=== PATIENT | male | born 1950 | race Caucasian/White ===

== ENCOUNTER 2017-06-08 12:16 | Emergency (ER) | payer MEDICARE, OTHER ==
[2017-06-08] MEDS ORDERED: MAGNESIUM SULFATE 2 GRAM 50 ML IV STA (13:31)
--- NOTE | 2017-06-08 13:33 | ED Physician Documentation ---
PD HPI MHE - Stated complaint Stated Complaint: SI - Chief complaint Chief Complaint: MHE - History obtained from History obtained from: Patient, Family (sister) - History of Present Illness Primary symptom: Other (This is a 66-year-old gentleman with long-standing alcoholism, currently drunk. He presents accompanied by his sister for vague suicidal ideation. He does have guns in the house. He wants to quit drinking. Says he is not actively suicidal.) Review of Systems Ten Systems: 10 systems reviewed and negative Constitutional: reports: Reviewed and negative Throat: reports: Reviewed and negative Cardiac: reports: Chest pain / pressure Respiratory: reports: Reviewed and negative PD PAST MEDICAL HISTORY - Past Medical History Past Medical History: Yes Cardiovascular: None Respiratory: None Neuro: Tremors Endocrine/Autoimmune: None GI: None : None Musculoskeletal: None Derm: None Other Past Medical History: Alcholism - Past Surgical History Past Surgical History: Yes General: Appendectomy - Present Medications Home Medications: Ambulatory Orders Medication Instructions Recorded Confirmed No Known Home Medications [No 06/08/17 06/08/17 Known Home Medications] - Allergies Allergies/Adverse Reactions: Allergies Allergy/AdvReac Type Severity Reaction Status Date / Time No Known Drug Allergies Allergy Verified 06/08/17 12:25 - Social History Does the pt smoke?: No Smoking Status: Former smoker Does the pt drink ETOH?: Yes ETOH Use: Liquor Does the pt have substance abuse?: No - Family History Family history: reports: Non contributory PD ED PE NORMAL - Vitals Vital signs reviewed: Yes - General General: Alert and oriented X 3, Other (Slurred speech, with horizontal nystagmus, anicteric.) - HEENT HEENT: PERRL, EOMI - Neck Neck: Supple, no meningeal sign, No bony TTP - Cardiac Cardiac: Other (Tachycardic, regular no murmur) - Respiratory Respiratory: No respiratory distress, Clear bilaterally - Abdomen Abdomen: Normal bowel sounds, Soft, Non tender - Derm Derm: No rash - Extremities Extremities: No deformity, No edema, No calf tenderness / cord - Neuro Neuro: Alert and oriented X 3, Normal speech - Psych Psych: Normal mood, Normal affect Results - Vitals Vitals: Vital Signs - 24 hr 06/08/17 06/08/17 06/08/17 18:02 20:02 21:04 Temperature 36.8 C Heart Rate 115 H 114 H 140 H Respiratory 17 23 16 Rate Blood Pressure 143/91 H 135/95 H 122/89 H O2 Saturation 94 93 93 06/09/17 06/09/17 06/09/17 03:48 05:44 05:49 Temperature Heart Rate 81 119 H 87 Respiratory 16 19 16 Rate Blood Pressure 131/78 H 136/78 H 121/77 O2 Saturation 92 94 92 06/09/17 07:34 Temperature Heart Rate 104 H Respiratory 17 Rate Blood Pressure 144/83 H O2 Saturation 95 Oxygen O2 Source Room air - Labs Labs: Laboratory Tests 06/08/17 06/08/17 06/08/17 14:17 14:17 15:34 WBC 7.7 RBC 5.01 Hgb 13.5 L Hct 40.6 L MCV 81.1 MCH 27.0 MCHC 33.3 RDW 21.9 H Plt Count 188 MPV 7.9 Neut # 4.2 Lymph # 2.8 [place] # 0.7 Eos # 0.0 Baso # 0.1 Absolute Nucleated RBC 0.00 Nucleated RBCs 0.0 Manual Slide Review Indicated WBC Morphology NORMAL APPEARANCE Platelet Estimate NORMAL (130-450,000) Platelet Morphology NORMAL APPEARANCE RBC Morph Micro Appear 2+ ANISOCYTOSIS Sodium 141 Potassium 3.6 Chloride 101 Carbon Dioxide 27 Anion Gap 13.0 BUN 7 Creatinine 0.7 Estimated GFR (MDRD) 113 Glucose 107 H Calcium 8.7 Total Bilirubin 0.6 AST 127 H ALT 70 H Alkaline Phosphatase 67 Total Protein 8.2 Albumin 4.2 Globulin 4.0 Albumin/Globulin Ratio 1.1 Lipase 27 Urine Opiates Screen NEGATIVE Ur Oxycodone Screen NEGATIVE Urine Methadone Screen NEGATIVE Ur Propoxyphene Screen NEGATIVE Ur Barbiturates Screen NEGATIVE Ur Tricyclics Screen NEGATIVE Ur Phencyclidine Scrn NEGATIVE Ur Amphetamine Screen NEGATIVE U Methamphetamines Scrn NEGATIVE U Benzodiazepines Scrn NEGATIVE Urine Cocaine Screen NEGATIVE U Cannabinoids Screen POSITIVE H Ethyl Alcohol 378.8 06/09/17 06:03 WBC RBC Hgb Hct MCV MCH MCHC RDW Plt Count MPV Neut # Lymph # [place] # Eos # Baso # Absolute Nucleated RBC Nucleated RBCs Manual Slide Review WBC Morphology Platelet Estimate Platelet Morphology RBC Morph Micro Appear Sodium Potassium Chloride Carbon Dioxide Anion Gap BUN Creatinine Estimated GFR (MDRD) Glucose Calcium Total Bilirubin AST ALT Alkaline Phosphatase Total Protein Albumin Globulin Albumin/Globulin Ratio Lipase Urine Opiates Screen Ur Oxycodone Screen Urine Methadone Screen Ur Propoxyphene Screen Ur Barbiturates Screen Ur Tricyclics Screen Ur Phencyclidine Scrn Ur Amphetamine Screen U Methamphetamines Scrn U Benzodiazepines Scrn Urine Cocaine Screen U Cannabinoids Screen Ethyl Alcohol < 5.0 PD MEDICAL DECISION MAKING - ED course ED course: This is a 66-year-old gentleman who presents with a request for alcohol detoxification. He is drunk currently. He has made some threats of suicidal ideation, but he denies active suicidal ideation. Unfortunately there is no social work case manager available today, he is too drunk for thorough evaluation anyway. He was willing to spend the night in the emergency department to speak with the social workers in the morning. Overnight he did have some alcohol withdrawal with tachycardia which was treated with IV fluids and Ativan with good relief. Sign out to Dr Moreno pending soc wk eval in AM. Departure - Departure Disposition: 01 Home, Self Care Clinical Impression: Alcohol withdrawal syndrome Qualifiers: Complication of substance-induced condition: uncomplicated Qualified Code(s): F10.230 - Alcohol dependence with withdrawal, uncomplicated Condition: Good Instructions: ED Withdrawal Alcohol, ED Alcohol Intoxication, ED Alcohol Abuse Comments: Please seek help for your alcoholism as discussed with the social work case manager. Discharge Date/Time: 06/09/17 09:21
[2017-06-08] MEDS ORDERED: MAGNESIUM SULFATE 2 GRAM 50 ML IV ONE (13:56)
[2017-06-08] MEDS ORDERED: THIAMINE 100 MG/1 ML 2 ML MDV ONE (13:57)
[2017-06-08] MEDS: THIAMINE INJ 100 MG, FOLIC ACID INJ 1 MG in SODIUM CHLORIDE 0.9% 100ML 100 ML IV STA ×2 (14:19→14:38)
[2017-06-08] MEDS: MULTIVITAMIN 10 ML in SODIUM CHLORIDE 0.9% 1,000 ML IV STA ×2 (14:19→14:38)
[2017-06-08] MEDS ORDERED: NICOTINE 14 MG PATCH TOP STA (14:55)
[2017-06-08 14:57] LABS: BASOPHILS # (AUTO) 0.1 10^3/uL (0.0-0.1); BASOPHILS % (AUTO) 0.7 %; EOSINOPHILS % (AUTO) 0.2 %; HCT - HEMATOCRIT 40.6 % (42.0-52.0); HGB - HEMOGLOBIN 13.5 g/dL (14.0-18.0); LYMPHOCYTES # (AUTO) 2.8 10^3/uL (1.5-3.5); LYMPHOCYTES % (AUTO) 36.1 %; MEAN CORPUSCULAR HGB CONC 33.3 g/dL (32.0-36.0); MEAN CORPUSCULAR VOLUME 81.1 fL (80.0-94.0); MEAN PLATELET VOLUME 7.9 fL (7.4-11.4); MONOCYTES # (AUTO) 0.7 10^3/uL (0.0-1.0); MONOCYTES % (AUTO) 8.5 %; NEUTROPHILS # (AUTO) 4.2 10^3/uL (1.5-6.6); NEUTROPHILS % (AUTO) 54.5 %; RED BLOOD COUNT 5.01 10^6/uL (4.70-6.10); RED CELL DISTRIBUTION WIDTH 21.9 % (12.0-15.0); UNCORRECTED WHITE BLOOD COUNT 7.7 x10^3/uL; WHITE BLOOD COUNT 7.7 x10^3/uL (4.8-10.8)
[2017-06-08] MEDS ORDERED: NICOTINE 14 MG PATCH TOP ONE (15:01)
[2017-06-08 15:14] LABS: ALBUMIN/GLOBULIN RATIO 1.1 (1.0-2.2); BILIRUBIN,TOTAL 0.6 mg/dL (0.2-1.0); CALCIUM 8.7 mg/dL (8.5-10.3); CREATININE 0.7 mg/dL (0.6-1.2); POTASSIUM 3.6 mmol/L (3.5-5.0); TOTAL PROTEIN 8.2 g/dL (6.7-8.2)
[2017-06-08 15:15] LABS: PLATELET ESTIMATE, MANUAL NORMAL (130-450,000) (NORMAL); PLATELET MORPHOLOGY NORMAL APPEARANCE (NORMAL); WBC MORPHOLOGY (MULTIPLE) NORMAL APPEARANCE (NORMAL)
[2017-06-08] MEDS ORDERED: LORazepam 2 MG/ML SYRINGE IVP STA ×2 (19:43→21:10)
[2017-06-08] MEDS ORDERED: LORazepam 2 MG/ML SYRINGE ONE ×2 (20:04→21:04)
[2017-06-08] MEDS ORDERED: SODIUM CHLORIDE FLUSH 0.9% 10 ML SYRINGE IVP ONE (20:09)
[2017-06-08] MEDS ORDERED: SODIUM CHLORIDE 0.9% 1,000 ML IV ONE (21:33)
[2017-06-09] MEDS ORDERED: LORazepam 2 MG/ML SYRINGE IVP STA ×2 (05:33→08:53)
[2017-06-09] MEDS ORDERED: LORazepam 2 MG/ML SYRINGE ONE ×2 (05:40→08:58)
[2017-06-09 07:35] VITALS: BP 144/83
== END 2017-06-09 09:21 | disposition home or self-care (01) ==
LOC: ED 12:16
DX: F10.230 Alcohol dependence with withdrawal, uncomplicated (principal); Z87.891 Personal history of nicotine dependence
CPT/HCPCS: 36415; 80053; 80306; 83690; 85025; 96365; 96368; 96375; 99284; 99285; A9270; G0480; J2060; J3411; 80320

== ENCOUNTER 2017-08-01 17:26 | Emergency (ER) | payer MEDICARE, OTHER ==
[2017-08-01 17:39] VITALS: BP 162/95
[2017-08-01] MEDS ORDERED: MAGNESIUM SULFATE 2 GRAM 2 GM/50 ML BAG IV ONE (17:43)
[2017-08-01] MEDS ORDERED: THIAMINE INJ 100 MG in SODIUM CHLORIDE 0.9% 50 ML IV STA (17:43)
[2017-08-01] MEDS ORDERED: SODIUM CHLORIDE 0.9% 1,000 ML IV ONE (17:43)
--- NOTE | 2017-08-01 17:46 | ED Physician Documentation ---
History of Present Illness - Stated complaint Stated Complaint: MHE/ETOH - Chief complaint Chief Complaint: MHE - History obtained from History obtained from: Patient, Friend - History of Present Illness Timing: Today Pain level max: 0 Pain level now: 0 Improved by: nothing Worsened by: nothing - Additonal information Additional information: Patient states that he is an alcoholic and has started drinking again about a week ago. States he is not homicidal or suicidal. States no hallucinations. States felt dizzy today. Doesn't want to go to rehab. Has not had seizures or hallucinations before. Denies any other complaints at this time. Review of Systems Ten Systems: 10 systems reviewed and negative Constitutional: denies: Fever, Chills Eyes: denies: Decreased vision Ears: denies: Ear pain Nose: denies: Rhinorrhea / runny nose, Congestion Throat: denies: Sore throat Cardiac: denies: Chest pain / pressure Respiratory: denies: Cough, Hemoptysis, Wheezing GI: denies: Abdominal Pain, Nausea, Vomiting, Diarrhea : denies: Dysuria Skin: denies: Rash Musculoskeletal: denies: Neck pain, Back pain Neurologic: denies: Focal weakness, Numbness, Headache PD PAST MEDICAL HISTORY - Past Medical History Past Medical History: Yes Cardiovascular: None Respiratory: None Neuro: Tremors Endocrine/Autoimmune: None GI: None : None Musculoskeletal: None Derm: None - Past Surgical History Past Surgical History: Yes General: Appendectomy - Present Medications Home Medications: Ambulatory Orders Medication Instructions Recorded Confirmed No Known Home Medications [No 06/08/17 08/01/17 Known Home Medications] - Allergies Allergies/Adverse Reactions: Allergies Allergy/AdvReac Type Severity Reaction Status Date / Time No Known Drug Allergies Allergy Verified 08/01/17 19:08 - Social History Does the pt smoke?: No Smoking Status: Never smoker Does the pt drink ETOH?: Yes Does the pt have substance abuse?: No PD ED PE NORMAL - Vitals Vital signs reviewed: Yes - General General: Alert and oriented X 3, No acute distress, Well developed/nourished, Other (intoxicated) - HEENT HEENT: Atraumatic, PERRL, EOMI, Moist mucous membranes - Neck Neck: Supple, no meningeal sign - Cardiac Cardiac: RRR, Strong equal pulses - Respiratory Respiratory: No respiratory distress, Clear bilaterally - Abdomen Abdomen: Soft, Non tender, Non distended - Back Back: No spinal TTP - Derm Derm: Warm and dry - Neuro Neuro: Alert and oriented X 3 - Psych Psych: Normal mood, Normal affect Results - Vitals Vitals: Vital Signs - 24 hr 08/01/17 08/01/17 17:32 18:52 Temperature 36.3 C L Heart Rate 123 H 100 Respiratory 18 Rate Blood Pressure 162/95 H O2 Saturation 100 95 Oxygen O2 Source Room air - Labs Labs: Laboratory Tests 08/01/17 08/01/17 18:00 18:00 WBC 8.0 RBC 5.04 Hgb 13.9 L Hct 42.0 MCV 83.3 MCH 27.6 MCHC 33.1 RDW 15.8 H Plt Count 224 MPV 6.9 L Neut # 4.4 Lymph # 3.1 [place] # 0.5 Eos # 0.0 Baso # 0.1 Absolute Nucleated RBC 0.00 Nucleated RBC % 0.0 Sodium 141 Potassium 3.4 L Chloride 100 L Carbon Dioxide 21 Anion Gap 20.0 H BUN 14 Creatinine 0.7 Estimated GFR (MDRD) 113 Glucose 96 Calcium 8.6 Phosphorus 2.9 Magnesium 1.7 Total Bilirubin 0.3 AST 30 ALT 13 Alkaline Phosphatase 87 Total Protein 7.8 Albumin 3.8 Globulin 4.0 Albumin/Globulin Ratio 1.0 Lipase 26 Salicylates < 6.0 Acetaminophen < 10 L Ethyl Alcohol 299.1 PD MEDICAL DECISION MAKING - ED course Complexity details: reviewed results, re-evaluated patient, considered differential, d/w patient, d/w family ED course: 66-year-old male who presents to the emergency department intoxicated today. He is not suicidal or homicidal. Is not psychotic. Does not wants mental health help at this point. He does not want to go to detox. He does not want to go to rehab. Does not want crisis/respite. He states he does not have any more alcohol at home and just wants to go home. His neighbor is here with him. [place] at [facility] for his depression, however the nurse (Yovana Zamudio) was told by the [facility] but they no longer make appointments for [facility] for next day appointments. Patient counseled regarding signs and symptoms for which I believe and urgent re -evaluation would be necessary. Patient with good understanding of and agreement to plan and is comfortable going home at this time This document was made in part using voice recognition software. While efforts are made to proofread this document, sound alike and grammatical errors may occur. Departure - Departure Disposition: 01 Home, Self Care Clinical Impression: Alcohol intoxication Qualifiers: Complication of substance-induced condition: uncomplicated Qualified Code(s): F10.920 - Alcohol use, unspecified with intoxication, uncomplicated Depression Qualifiers: Depression Type: unspecified Qualified Code(s): F32.9 - Major depressive disorder, single episode, unspecified Condition: Good Instructions: ED Depression, ED Alcohol Intoxication Follow-Up: your,doctor in 1 week [Other] [facility] [Provider Group] Comments: Follow-up was [facility] on Thursday. Your appointment is at 10 AM. Crisis Line and is available to talk to someone [email or web address] is also available to chat with someone online if you prefer. There are also many resources on this website and apps for your phone to help with your mental health You should also stop drinking alcohol and should follow-up with a chemical dependency unit to help you detox. Discharge Date/Time: 08/01/17 19:15
[2017-08-01 18:05] LABS: BASOPHILS # (AUTO) 0.1 10^3/uL (0.0-0.1); BASOPHILS % (AUTO) 0.7 %; EOSINOPHILS % (AUTO) 0.6 %; HGB - HEMOGLOBIN 13.9 g/dL (14.0-18.0); LYMPHOCYTES # (AUTO) 3.1 10^3/uL (1.5-3.5); LYMPHOCYTES % (AUTO) 38.6 %; MEAN CORPUSCULAR HEMOGLOBIN 27.6 pg (27.0-31.0); MEAN CORPUSCULAR HGB CONC 33.1 g/dL (32.0-36.0); MEAN CORPUSCULAR VOLUME 83.3 fL (80.0-94.0); MEAN PLATELET VOLUME 6.9 fL (7.4-11.4); MONOCYTES # (AUTO) 0.5 10^3/uL (0.0-1.0); MONOCYTES % (AUTO) 5.9 %; NEUTROPHILS # (AUTO) 4.4 10^3/uL (1.5-6.6); NEUTROPHILS % (AUTO) 54.2 %; RED BLOOD COUNT 5.04 10^6/uL (4.70-6.10); RED CELL DISTRIBUTION WIDTH 15.8 % (12.0-15.0)
[2017-08-01 18:34] LABS: BILIRUBIN,TOTAL 0.3 mg/dL (0.2-1.0); BUN - BLOOD UREA NITROGEN 14 mg/dL (6-20); CALCIUM 8.6 mg/dL (8.5-10.3); CARBON DIOXIDE - CO2 21 mmol/L (21-32); CHLORIDE 100 mmol/L (101-111); CREATININE 0.7 mg/dL (0.6-1.2); GFR - MDRD 113 (>89); GLUCOSE 96 mg/dL (70-100); LIPASE 26 U/L (22-51); MAGNESIUM 1.7 mg/dL (1.7-2.8); PHOSPHORUS 2.9 mg/dL (2.5-4.6); POTASSIUM 3.4 mmol/L (3.5-5.0); SALICYLATE < 6.0 mg/dL; SODIUM 141 mmol/L (135-145); TOTAL PROTEIN 7.8 g/dL (6.7-8.2)
[2017-08-01 18:46] LABS: ACETAMINOPHEN < 10 ug/mL (10-30)
== END 2017-08-01 19:15 | disposition home or self-care (01) ==
LOC: ED 17:26
DX: F10.129 Alcohol abuse with intoxication, unspecified (principal); F32.9 Major depressive disorder, single episode, unspecified; R25.1 Tremor, unspecified
CPT/HCPCS: 36415; 80053; 80307; 83690; 83735; 84100; 85025; 96374; 96375; 99283; 99284; G0480; J3411; J7040; 80320; 80329

== ENCOUNTER 2017-08-16 16:52 | Outpatient (CLI) | payer MEDICARE, OTHER | END 2017-08-16 16:53 | disposition critical access hospital (66) | LOC: EMS 16:52 | PROVIDERS: ATTEND Surgery | DX: S09.93XA Unspecified injury of face, initial encounter (principal); W19.XXXA Unspecified fall, initial encounter; Y92.002 Bathroom of unspecified non-institutional (private) residence as the place of occurrence of the external cause; Z72.89 Other problems related to lifestyle | CPT/HCPCS: A0425; A0429 ==

== ENCOUNTER 2017-08-16 17:20 | Emergency (ER) | payer MEDICARE, OTHER ==
--- NOTE | 2017-08-16 17:42 | ED Physician Documentation ---
PD HPI HEAD INJURY - Stated complaint Stated Complaint: FALL/ ETOH - Chief complaint Chief Complaint: Neuro - History obtained from History obtained from: Patient - History of Present Illness Mechanism of head injury: Fell Where head injury occurred: Home Timing - onset: Yesterday Location of injury: Right, Front (periorbital area) Quality of pain: Pain Associated symptoms: Other (bruising around right eye and eyelid.). No: LOC, Amnesia, Nausea / vomiting Symptoms worsen with: Palpation Contributing factors: Intoxicated. No: Anticoagulated Similar symptoms before: Diagnosis (has had alcoholism heavily since retiring a year ago. Has had 6 weeks sober with last try of sobering. He is requesting help with alchol treatment.) Recently seen: Not recently seen Review of Systems Constitutional: denies: Fever, Chills Nose: denies: Rhinorrhea / runny nose, Congestion Throat: denies: Sore throat Respiratory: denies: Cough GI: denies: Abdominal Pain, Nausea, Vomiting, Diarrhea : denies: Dysuria, Frequency Skin: denies: Rash, Lesions, Abrasion (s) Musculoskeletal: denies: Neck pain, Back pain Neurologic: reports: Headache (mild right side), Head injury. denies: Focal weakness, Numbness, Altered mental status Psychiatric: reports: Insomnia. denies: Anxiety Endocrine: denies: Weight loss, Easy bruising / bleeding Immunocompromised: denies: Immunocompromised PD PAST MEDICAL HISTORY - Past Medical History Cardiovascular: None Respiratory: None Neuro: Tremors Endocrine/Autoimmune: None GI: None : None Musculoskeletal: None Derm: None - Past Surgical History Past Surgical History: Yes General: Appendectomy - Present Medications Home Medications: Ambulatory Orders Medication Instructions Recorded Confirmed Lorazepam [Ativan] 1 mg PO Q8H PRN #20 tablet 08/16/17 Promethazine [Phenergan] 25 - 50 mg PO Q6H PRN #30 tab 08/16/17 cloNIDine [Catapres] 0.1 mg PO DAILY #10 tablet 08/16/17 - Allergies Allergies/Adverse Reactions: Allergies Allergy/AdvReac Type Severity Reaction Status Date / Time No Known Drug Allergies Allergy Verified 08/16/17 17:27 - Social History Does the pt smoke?: No Smoking Status: Never smoker Does the pt drink ETOH?: Yes Does the pt have substance abuse?: No - Family History Family history: reports: Non contributory PD ED PE NORMAL - Vitals Vital signs reviewed: Yes - General General: No acute distress, Well developed/nourished, Other (slightly unkempt but normal weight appearance. Has some emotionality and rambling speech with smell of alcohol on breath c/w intoxication. ) - HEENT HEENT: PERRL, EOMI (normal vision by quadrant testing. ), Ears normal, Pharynx benign, Other (right periorbital area laterally with bruising and slight tender. Upper lid swelling.) - Neck Neck: Supple, no meningeal sign, No bony TTP, No adenopathy - Cardiac Cardiac: RRR, No murmur - Respiratory Respiratory: Clear bilaterally - Abdomen Abdomen: Normal bowel sounds, Soft, Non tender, Non distended, Other (mild enlargement of liver; not tender. ) - Male Male : Deferred - Rectal Rectal: Deferred - Back Back: No CVA TTP, No spinal TTP - Derm Derm: Normal color - Extremities Extremities: No deformity, No tenderness to palpate, Normal ROM s pain, No edema , No calf tenderness / cord - Neuro Neuro: Alert and oriented X 3, No motor deficit, Normal speech Eye Opening: Spontaneous Motor: Obeys Commands Verbal: Oriented GCS Score: 15 - Psych Psych: Normal mood Results - Vitals Vitals: Vital Signs - 24 hr 08/16/17 17:23 Temperature 37.0 C Heart Rate 114 H Respiratory 16 Rate Blood Pressure 142/83 H O2 Saturation 96 Oxygen O2 Source Room air - Labs Labs: Laboratory Tests 08/16/17 08/16/17 18:12 18:12 WBC 9.1 RBC 5.26 Hgb 14.4 Hct 44.1 MCV 83.9 MCH 27.4 MCHC 32.7 RDW 17.3 H Plt Count 295 MPV 6.9 L Neut # 6.5 Lymph # 2.0 [place] # 0.5 Eos # 0.0 Baso # 0.1 Absolute Nucleated RBC 0.00 Nucleated RBC % 0.0 Sodium 141 Potassium 3.9 Chloride 99 L Carbon Dioxide 19 L Anion Gap 23.0 H BUN 15 Creatinine 0.7 Estimated GFR (MDRD) 113 Glucose 102 H Calcium 8.5 Magnesium 1.5 L Total Bilirubin 0.5 AST 41 ALT 17 Alkaline Phosphatase 73 Total Protein 8.0 Albumin 4.0 Globulin 4.0 Albumin/Globulin Ratio 1.0 Lipase 22 Ethyl Alcohol 387.9 - Rads (name of study) head CT Radiology: Prelim report reviewed (negative) facial CT Radiology: Prelim report reviewed (negative for fractures. ) PD MEDICAL DECISION MAKING - ED course Complexity details: reviewed results, re-evaluated patient (patient sobering and is lucid/conversant. I talked with him about meds for home to help with withdrawal and following up with alcohol treatment programs tomorrow. He said he was not comfortable going home, worried about drinking and/or withdrawal. He was not coming up with a ride home, and does not have money for taxi. Seems will need to have him sleep overnight here and SW can try to connect him with info/programs tomorrow for detox/rehab for alcohol. Will give Ativan PRN withdrawal. ), considered differential, d/w patient Departure - Departure Clinical Impression: Alcoholism Facial contusion Qualifiers: Encounter type: initial encounter Qualified Code(s): S00.83XA - Contusion of other part of head, initial encounter Fall from slip, trip, or stumble Qualifiers: Encounter type: initial encounter Qualified Code(s): W01.0XXA - Fall on same level from slipping, tripping and stumbling without subsequent striking against object, initial encounter Alcohol intoxication Qualifiers: Complication of substance-induced condition: uncomplicated Qualified Code(s): F10.920 - Alcohol use, unspecified with intoxication, uncomplicated Condition: Stable Record reviewed to determine appropriate education?: Yes Instructions: ED Alcohol Abuse [place] [facility] [place]] [facility] [Provider Group] Prescriptions: cloNIDine [Catapres] 0.1 mg PO DAILY #10 tablet Lorazepam [Ativan] 1 mg PO Q8H PRN #20 tablet PRN Reason: Anxiety Promethazine [Phenergan] 25 - 50 mg PO Q6H PRN #30 tab PRN Reason: Nausea / Vomiting
[2017-08-16] MEDS ORDERED: IBUPROFEN 600 MG TABLET PO STA (18:02)
[2017-08-16] MEDS ORDERED: ACETAMINOPHEN 325 MG TABLET PO STA (18:04)
[2017-08-16] MEDS ORDERED: IBUPROFEN 600 MG TABLET PO ONE (18:15)
[2017-08-16] MEDS ORDERED: ACETAMINOPHEN 325 MG TABLET PO ONE (18:15)
[2017-08-16 18:19] LABS: BASOPHILS # (AUTO) 0.1 10^3/uL (0.0-0.1); BASOPHILS % (AUTO) 0.9 %; EOSINOPHILS % (AUTO) 0.1 %; HCT - HEMATOCRIT 44.1 % (42.0-52.0); HGB - HEMOGLOBIN 14.4 g/dL (14.0-18.0); LYMPHOCYTES % (AUTO) 21.7 %; MEAN CORPUSCULAR HEMOGLOBIN 27.4 pg (27.0-31.0); MEAN CORPUSCULAR HGB CONC 32.7 g/dL (32.0-36.0); MEAN CORPUSCULAR VOLUME 83.9 fL (80.0-94.0); MEAN PLATELET VOLUME 6.9 fL (7.4-11.4); MONOCYTES # (AUTO) 0.5 10^3/uL (0.0-1.0); MONOCYTES % (AUTO) 5.4 %; NEUTROPHILS # (AUTO) 6.5 10^3/uL (1.5-6.6); NEUTROPHILS % (AUTO) 71.9 %; RED BLOOD COUNT 5.26 10^6/uL (4.70-6.10); RED CELL DISTRIBUTION WIDTH 17.3 % (12.0-15.0); UNCORRECTED WHITE BLOOD COUNT 9.1 x10^3/uL; WHITE BLOOD COUNT 9.1 x10^3/uL (4.8-10.8)
[2017-08-16 18:37] LABS: BILIRUBIN,TOTAL 0.5 mg/dL (0.2-1.0); CALCIUM 8.5 mg/dL (8.5-10.3); CREATININE 0.7 mg/dL (0.6-1.2); MAGNESIUM 1.5 mg/dL (1.7-2.8); POTASSIUM 3.9 mmol/L (3.5-5.0)
--- NOTE | 2017-08-16 18:42 | CT Preliminary Report ---
Exam: CT HEAD W/O IMPRESSION: Normal head CT. [facility] SITE ID: [id number]
--- NOTE | 2017-08-16 18:44 | CT Preliminary Report ---
Exam: CT ORBITS W/O IMPRESSION: No fracture. [facility] SITE ID: [id number]
--- NOTE | 2017-08-16 18:44 | CT Report ---
EXAM: CT HEAD EXAM DATE: 08/16/2017 06:30 PM. CLINICAL HISTORY: Fall with face/head injury yesterday. COMPARISON: None. TECHNIQUE: Multiaxial CT images were obtained from the foramen magnum to the vertex. Reformats: Coron al. IV contrast: None. In accordance with CT protocol optimization, one or more of the following dose reduction techniques w ere utilized for this exam: automated exposure control, adjustment of mA and/or KV based on patient s ize, or use of iterative reconstructive technique. FINDINGS: Parenchyma: No intraparenchymal hemorrhage. No evidence of mass, midline shift, or CT findings of inf arction. Khan-white differentiation is distinct. Extraaxial Spaces: Normal for age. No subdural or epidural collections identified. Ventricles: Normal in size and position. Sinuses and Orbits: Imaged paranasal sinuses, orbits, and mastoids show no significant abnormality. Bones: No evidence of fracture or calvarial defect. Other: None. IMPRESSION: Normal head CT. [facility] Referring Provider Line: [phone] SITE ID: [id number]
--- NOTE | 2017-08-16 18:47 | CT Report ---
EXAM: CT MAXILLOFACIAL WITHOUT CONTRAST EXAM DATE: 08/16/2017 06:30 PM. CLINICAL HISTORY: Fall with right periorbital injury yesterday. COMPARISONS: None. TECHNIQUE: Thin-section axial images were acquired of the face without contrast. Post-processing: Cor onal and sagittal reformats. Other: None. In accordance with CT protocol optimization, one or more of the following dose reduction techniques w ere utilized for this exam: automated exposure control, adjustment of mA and/or KV based on patient s ize, or use of iterative reconstructive technique. FINDINGS: Soft Tissue: No mass or fluid collection.The infratemporal fossa and parapharyngeal spaces are unrema rkable. Orbits: Symmetric and unremarkable. Bones: No fracture or bone lesion. Temporomandibular Joints: The temporomandibular joints are symmetric and normally located. Sinuses: No fluid levels. Other: Mild right superficial periorbital soft tissue stranding. IMPRESSION: No fracture. [facility] Referring Provider Line: [phone] SITE ID: [id number]
[2017-08-16] MEDS ORDERED: LORazepam 0.5 MG TABLET PO STA (21:33)
[2017-08-16] MEDS ORDERED: cloNIDine 0.1 MG TABLET PO STA (21:33)
[2017-08-16] MEDS ORDERED: LORazepam 0.5 MG TABLET ONE (21:42)
[2017-08-16] MEDS ORDERED: cloNIDine 0.1 MG TABLET ONE (21:42)
[2017-08-16] MEDS ORDERED: LORazepam 0.5 MG TABLET PO PRN (23:23)
[2017-08-16] MEDS ORDERED: ONDANSETRON ODT 4 MG TABLET TL PRN (23:24)
[2017-08-17] MEDS ORDERED: LORazepam 0.5 MG TABLET ONE ×3 (07:48→20:41)
[2017-08-17] MEDS ORDERED: LORazepam 0.5 MG TABLET PO STA ×2 (12:48→20:17)
[2017-08-17 18:43] VITALS: BP 150/91
[2017-08-17] MEDS ORDERED: NICOTINE 14 MG PATCH TOP STA (20:17)
[2017-08-17] MEDS ORDERED: NICOTINE 14 MG PATCH TOP ONE (20:42)
== END 2017-08-17 21:00 ==
LOC: EDUNIT# → ED 17:20
DX: S00.83XA Contusion of other part of head, initial encounter (principal); W01.0XXA Fall on same level from slipping, tripping and stumbling without subsequent striking against object, initial encounter; F10.129 Alcohol abuse with intoxication, unspecified
CPT/HCPCS: 36415; 70450; 70480; 80053; 80306; 83690; 83735; 85025; 93005; 99284; A9270; G0480; 80320

== ENCOUNTER 2018-02-02 13:12 | Emergency (ER) | payer MEDICARE, OTHER ==
[2018-02-02 13:51] LABS: BILIRUBIN,URINE NEGATIVE (NEGATIVE); GLUCOSE, URINE (UA) NEGATIVE (NEGATIVE); KETONES,URINE (UA) >=80 mg/dL (NEGATIVE); LEUKOCYTE ESTERASE, URINE NEGATIVE (NEGATIVE); NITRITE,URINE NEGATIVE (NEGATIVE); OCCULT BLOOD,URINE NEGATIVE (NEGATIVE); PH,URINE 5.5 PH (5.0-7.5); PROTEIN,URINE TRACE mg/dL (NEGATIVE); UROBILINOGEN,URINE 0.2 (NORMAL) E.U./dL (NORMAL)
[2018-02-02 13:52] LABS: CLARITY,URINE CLEAR (CLEAR)
--- NOTE | 2018-02-02 14:26 | ED Physician Documentation ---
PD HPI MALE - Stated complaint Stated Complaint: MALE - Chief complaint Chief Complaint: General - History obtained from History obtained from: Patient - History of Present Illness Timing - onset: How many days ago (he has noted some mild pain in right scrotum the past few days, and today in shower noted a mass/lump on right side. Here for evaluation.) Timing - details: Abrupt onset (he had not noticed a lump there previously) Associated symptoms: Scrotal swelling. No: Dysuria, Urinary frequency, Genital sore / lesion PD HPI MALE CONTRIB FACTORS: Sexually active Similar symptoms before: Has not had sx before Recently seen: Not recently seen Review of Systems Constitutional: denies: Fever, Chills GI: denies: Abdominal Pain, Nausea, Vomiting, Diarrhea : denies: Dysuria, Frequency, Discharge Skin: denies: Rash, Lesions PD PAST MEDICAL HISTORY - Past Medical History Cardiovascular: None Respiratory: None Endocrine/Autoimmune: None GI: None : None Musculoskeletal: None Derm: None - Past Surgical History Past Surgical History: Yes General: Appendectomy - Present Medications Home Medications: Ambulatory Orders Medication Instructions Recorded Confirmed Lorazepam [Ativan] 1 mg PO Q8H PRN #20 tablet 08/16/17 - Allergies Allergies/Adverse Reactions: Allergies Allergy/AdvReac Type Severity Reaction Status Date / Time No Known Drug Allergies Allergy Verified 02/02/18 13:39 - Social History Does the pt smoke?: No Smoking Status: Never smoker Does the pt drink ETOH?: Yes Does the pt have substance abuse?: No PD ED PE NORMAL - Vitals Vital signs reviewed: Yes - General General: Alert and oriented X 3, No acute distress, Well developed/nourished - Abdomen Abdomen: Normal bowel sounds, Soft, Non tender, Non distended - Male Male : Other (no ingiunal nodes, no hernias noted. Right scrotum with fullness and tenderness, hard to distinguish structures. Left scrotum normal feeling. ) - Rectal Rectal: Deferred - Back Back: No CVA TTP - Derm Derm: Normal color, Warm and dry Results - Vitals Vitals: Vital Signs - 24 hr 02/02/18 02/02/18 02/02/18 13:35 14:10 17:05 Temperature 36.4 C L Heart Rate 123 H 100 88 Respiratory 16 18 20 Rate Blood Pressure 153/90 H 159/91 H 129/86 H O2 Saturation 97 98 Oxygen O2 Source Room air - Labs Labs: Laboratory Tests 02/02/18 13:36 Urine Color YELLOW Urine Clarity CLEAR Urine pH 5.5 Ur Specific [place] >=1.030 H Urine Protein TRACE Urine Glucose (UA) NEGATIVE Urine Ketones >=80 H Urine Occult Blood NEGATIVE Urine Nitrite NEGATIVE Urine Bilirubin NEGATIVE Urine Urobilinogen 0.2 (NORMAL) Ur Leukocyte Esterase NEGATIVE Ur Microscopic Review NOT INDICATED Urine Culture Comments NOT INDICATED - Rads (name of study) testicular U/S Radiology: Prelim report reviewed (testicles normal size and blood flow. Right scrotum has complex hydrocele. Epididymitis is normal. ) PD MEDICAL DECISION MAKING - ED course Complexity details: reviewed results (normal testicle. has complex hydrocele. Unusual to be abrupt onset, but might have been longer and he did not notice it previously, as incidentally noted in shower today. ), considered differential, d /w patient Departure - Departure Disposition: 01 Home, Self Care Clinical Impression: Hydrocele in adult, Scrotal swelling Condition: Stable Record reviewed to determine appropriate education?: Yes Instructions: ED Hydrocele Type Not Specified Follow-Up: Idalmis Aguilera ARNP [Primary Care Provider] - Dominic Escobedo MD [Physician No Access] - Comments: There is a fluid sac called a hydrocele on the scrotum and that side. This is not harmful or bad. He can be annoying so if it does not decrease in size on its own over the next couple of weeks, you could see a urologist to discuss about it being decompressed or removed. However most the time it will improve on its own. He can use Tylenol or ibuprofen if needed for pains of it. Discharge Date/Time: 02/02/18 17:05
[2018-02-02] MEDS ORDERED: LORazepam 0.5 MG TABLET PO STA (14:43)
[2018-02-02] MEDS ORDERED: NAPROXEN 250 MG TABLET PO STA (14:43)
--- NOTE | 2018-02-02 16:19 | Ultrasound Preliminary Report ---
Exam: US TESTICLE W/DOPPLER IMPRESSION: 1. No sonographic evidence of right epididymoorchitis. However, there is a moderate size, moderately complex right hydrocele of uncertain etiology. 2. Normal left testis and epididymis. [facility] SITE ID: [id number]
--- NOTE | 2018-02-02 16:27 | Ultrasound Report ---
EXAM: SCROTAL ULTRASOUND EXAM DATE: 02/02/2018 04:02 PM. CLINICAL HISTORY: Right testicle swollen and tender for few days. COMPARISON: None. TECHNIQUE: Real-time scanning was performed with static images obtained. Both color-flow and Doppler spectral analysis were utilized. FINDINGS: Right: Testis: 3.9 x 2.7 x 3.0 cm. Normal size and echotexture. No mass, calcification, or abnormal blood fl ow. Epididymis: 1.0 x 0.9 x 1.0 cm. Normal size and echotexture. No mass or abnormal blood flow. A small epididymal head cyst is present measuring up to 5 mm. Hydrocele: There is a moderate-sized complex hydrocele with numerous septations present. Varicocele: None. Left: Testis: 3.9 x 2.9 x 2.3 cm. Normal size and echotexture. No mass, calcification, or abnormal blood fl ow. Epididymis: 1.0 x 0.8 x 1.1 cm. Normal size and echotexture. No mass or abnormal blood flow. Hydrocele: None. Varicocele: None. IMPRESSION: 1. No sonographic evidence of right epididymo-orchitis. However, there is a moderate-sized, moderatel y complex right hydrocele of uncertain etiology. 2. Normal left testis and epididymis. [facility] Referring Provider Line: [phone] SITE ID: [id number]
[2018-02-02 17:05] VITALS: BP 129/86
== END 2018-02-02 17:05 | disposition home or self-care (01) ==
LOC: ED 13:12
DX: N43.3 Hydrocele, unspecified (principal)
CPT/HCPCS: 76870; 81003; 93975; 99283; A9270; 81001; 87086